=== PATIENT | male | born 1940 | race Hispanic/Latino ===

== ENCOUNTER → 2017-10-04 | Day surgery (SDC) | payer OTHER ==
[2017-10-02 11:12] LABS: BASOPHILS # (AUTO) 0.1 (0.0-0.1); BASOPHILS % 1.2 % (0.0-1.0); EOSINOPHILS # (AUTO) 0.2 (0.0-0.4); EOSINOPHILS % 3.8 % (0.0-6.0); HEMATOCRIT 42.2 % (38.2-49.6); HEMOGLOBIN 13.7 g/dL (14.0-18.0); LYMPHOCYTES # (AUTO) 1.3 (1.0-3.2); LYMPHOCYTES % 22.3 % (18.0-39.1); MEAN CORPUSCULAR HEMOGLOBIN 29.2 pg (28-32); MEAN CORPUSCULAR HGB CONC 32.5 g/dL (31-35); MONOCYTES # (AUTO) 0.7 (0.2-0.8); MONOCYTES % 11.5 % (4.4-11.3); NEUTROPHILS # (AUTO) 3.6 (2.1-6.9); PLATELET COUNT 232 x10e3/uL (140-360); RED BLOOD COUNT 4.69 x10e6/uL (4.3-5.7); RED CELL DISTRIBUTION WIDTH 13.1 % (11.7-14.4)
--- NOTE | 2017-10-02 11:47 | Diagnostic Imaging Report ---
PROCEDURE: X-RAY CHEST, TWO VIEWS COMPARISON: None. INDICATIONS: PREOPERATIVE CHEST XRAY FOR SURGERY FINDINGS: LUNGS: Diffusely hyperinflated consistent with COPD. No mass or infiltrate. PLEURA: No effusions or pneumothorax. HEART \T\ MEDIASTINUM: The heart is within normal size-limits. Aorta is ectatic with mild burden of arch calcification. BONES \T\ SOFT TISSUES: There is a healed right rib fracture. No acute fractures. No focal osseous lesions. CONCLUSION: Diffuse pulmonary hyperinflation suggestive of COPD. No active disease. Dictated by: Oscar Yu M.D. on 10/02/2017 at 11:53 Electronically approved by: Oscar Yu M.D. on 10/02/2017 at 11:53
[~2017-10-04] MED LIST: ALBUTEROL0.63 MG/3; AMLODIPINE BESYL5 MG PO; ATORVASTATIN CA20 MG PO; BACITRACIN ZINC 15 GM OINT ONE; BUPIVACAINE 0.25% 30ML SDV INJ ONE; CEFAZOLIN SOD 1 GM VIAL ONE; DEXAMETHASONE SOD PHOS INJ 4 MG/ML VIAL ONE; EPHEDRINE SULFATE INJ 50 MG/10 ML SYR ONE; FENTANYL CITRATE/PF 100MCG/2 ML INJ ONE; LIDOCAINE HCL 2% LOCAL INJ 5 ML SDV VIAL INJ ONE; LOSARTAN POTAS100 MG PO; MIDAZOLAM HCL 2 MG/2 ML VIAL ONE; NEOSTIGMINE 1 MG/ML 10ML VIAL ONE; ONDANSETRON HCL INJ 2 MG/ML VIAL ONE; PHENYLEPHRINE HCL 1% 10 MG/ML VIAL ONE; PROPOFOL IV EMULSION 10 MG/ML 20 ML VIAL ONE; SEVOFLURANE INHAL SOLN 250 ML PEN BTL ONE
[2017-10-04 08:45] VITALS: BP 151/81
--- NOTE | 2017-11-14 02:44 | Operative Report ---
DATE OF PROCEDURE: October 04, 2017 PREOPERATIVE DIAGNOSIS: Phimosis. POSTOPERATIVE DIAGNOSIS: Phimosis. OPERATIONS PERFORMED: 1. Circumcision. 2. Penile nerve block (separate procedure performed for postoperative pain control and not required for actual performance of surgery done under general anesthesia). 3. Dorsal slit. ANESTHESIA: General. COMPLICATIONS: None. CLINICAL SUMMARY: Maximus Grey is a 77-year-old man with severe phimosis. He has failed nonoperative management and needs circumcision. He is aware of the risks of bleeding, infection, injury to adjacent structures, need for additional procedures, and elected to proceed. OPERATIVE PROCEDURE IN DETAIL: Informed consent was verified. Maximus Grey was properly identified, taken to the operating room, and placed on the operating table in supine position. Anesthesia was uneventfully begun. The patient was then carefully and gently repositioned in the dorsal lithotomy position with all pressure points well padded. His genitalia were prepared and draped in usual sterile fashion. We were unable to retract the patient's foreskin. Marcaine without epinephrine was utilized to infiltrate subcutaneously circumferentially at the base of the penis as well as in the region of the dorsal penile nerves. This was done for postoperative pain control and not required for the actual performance of surgery, which was done under general anesthesia. A circumferential incision was then made overlying the mckenna of the glans penis. Following this, a dorsal slit was performed following utilization of a straight hemostat and crushing the phimotic band dorsally. Once the dorsal slit was made, we were able to fully retract the foreskin. We cleaned the penis, took down any adhesions that were present, and then copiously re-prepared the patient's penis with Betadine. Following this, a secondary incision was made approximately 5 mm away from the mckenna of the glans penis along the inner preputial skin. A sleeve circumcision was then performed. The foreskin was removed. Pinpoint electrocautery was utilized to achieve hemostasis. The patient's incision was then approximated with 4-0 chromic suture in running fashion. Excellent cosmetic result was achieved. Sterile dressing was applied of bacitracin ointment, followed by Xeroform gauze, followed by loose-fitting Roberto, and the patient was uneventfully reversed from anesthesia and taken to the recovery room in stable condition. There were no complications to the procedure. He tolerated the procedure well. Explicit postoperative instructions were given, and will follow the patient up in the office. Job#: [id number] cc: DEIRDRE
--- OUTSIDE RECORDS SUMMARY | 2017-11-14 04:07 | XMS REPORT ---
Author Author [facility] Address Unknown Phone Unavailable Care Team Providers Care Internet Developer Name Role Phone CHRISS BONILLA Unavailable Unavailable Problems This patient has no known problems. Allergies, Adverse Reactions, Alerts This patient has no known allergies or adverse reactions. Medications This patient has no known medications. Results Test Description Test Time Test Comments Text Results Atomic Results Result Comments CHEST 2 VIEWS 2017-10-02 11:53:00 [place] [id number] Patient Name: JOHANNA MARISCAL MR #: [id number] : 1940 Age/Sex: 77/M Req #: [id number] Adm Physician: Ordered by: CHRISS BONILLA MD Report #: [id number] Location: OR Room/Bed: Procedure: [id number] DX/CHEST 2 VIEWS Exam Date: 10/02/17 Exam Time: 1045 REPORT STATUS: Signed PROCEDURE: X-RAY CHEST, TWO VIEWS COMPARISON: None. INDICATIONS: PREOPERATIVE CHEST XRAY FOR SURGERY FINDINGS: LUNGS: Diffusely hyperinflated consistent with COPD. No mass or infiltrate. PLEURA: No effusions or pneumothorax. HEART T MEDIASTINUM: The heart is within normal size-limits. Aorta is ectatic with mild burden of arch calcification. BONES T SOFT TISSUES: There is a healed right rib fracture. No acute fractures. No focal osseous lesions. CONCLUSION: Diffuse pulmonary hyperinflation suggestive of COPD. No active disease. Dictated by: Danny Yu M.D. on 10/02/2017 at 11:53 Electronically approved by: Danny Yu M.D. on 10/02/2017 at 11:53 Dictated By: DANNY YU MD [id number] COPY TO: CHRISS BONILLA MD
== END | disposition home or self-care (01) ==
LOC: OR 05:06
PROVIDERS: ATTEND Urology
DX: N47.1 Phimosis (principal); C61 Malignant neoplasm of prostate; R35.1 Nocturia; N52.9 Male erectile dysfunction, unspecified; J44.9 Chronic obstructive pulmonary disease, unspecified; I25.10 Atherosclerotic heart disease of native coronary artery without angina pectoris; I10 Essential (primary) hypertension; Z01.810 Encounter for preprocedural cardiovascular examination; Z01.812 Encounter for preprocedural laboratory examination; Z01.818 Encounter for other preprocedural examination; Z95.5 Presence of coronary angioplasty implant and graft; Z85.46 Personal history of malignant neoplasm of prostate; Z80.42 Family history of malignant neoplasm of prostate
CPT/HCPCS: 36415; 54161; 71046; 85025; 88304; 93005; J0690; J1100; J2001; J2250; J2370; J2405; J2710